=== PATIENT | female | born 1990 | race Caucasian/White ===

== ENCOUNTER 2018-06-19 17:47 | Emergency (ER) | payer OTHER ==
[2018-06-19] MEDS: ACETAMINOPHEN 325 MG TAB PO (19:07)
[2018-06-19 19:10] LABS: ADD MAN DIFF? NO
[2018-06-19 19:15] LABS: BASOPHILS % 0.1 % (0.0-2.0); EOSINOPHILS # 0.1 10^3/ul (0.0-0.5); EOSINOPHILS % 1.7 % (0.0-7.0); HEMATOCRIT 38.5 % (37.0-47.0); HEMOGLOBIN 12.5 g/dl (12.0-16.0); LYMPHOCYTES # 2.3 10^3/ul (0.8-2.9); LYMPHOCYTES % 30.1 % (15.0-51.0); MEAN CORPUSCULAR HEMOGLOBIN 28.2 pg (29.0-33.0); MEAN CORPUSCULAR HGB CONC 32.5 g/dl (32.0-37.0); MEAN CORPUSCULAR VOLUME 86.9 fl (82.0-101.0); MEAN PLATELET VOLUME 10.8 fl (7.4-10.4); MONOCYTE # 0.5 10^3/ul (0.3-0.9); MONOCYTES % 6.9 % (0.0-11.0); NEUTROPHIL # 4.6 10^3/ul (1.6-7.5); NEUTROPHILS % 60.9 % (39.0-77.0); PLATELET COUNT 272 10^3/UL (140-415); RED BLOOD COUNT 4.43 10^6/ul (4.20-5.40)
[2018-06-19 19:15] LABS: WHITE BLOOD COUNT 7.6 10^3/ul (4.8-10.8)
[2018-06-19 19:22] LABS: ADD UMIC YES; UR ASCORBIC ACID NEGATIVE (NEGATIVE); UR BILIRUBIN (Dip) NEGATIVE (NEGATIVE); UR BLOOD (Dip) 1+ mg/dL (NEGATIVE); UR CLARITY CLEAR (CLEAR); UR COLOR YELLOW (YELLOW); UR GLUCOSE (Dip) NEGATIVE (NEGATIVE); UR KETONES (Dip) NEGATIVE (NEGATIVE); UR LEUKOCYTE ESTERASE (Dip) TRACE Leu/ul (NEGATIVE); UR MUCUS FEW /HPF (NONE SEEN); UR NITRITE (Dip) NEGATIVE (NEGATIVE); UR RBC 1 /HPF (0-5); UR SPECIFIC GRAVITY (Dip) 1.019 (1.003-1.030); UR SQUAMOUS EPITHELIAL CELL FEW /HPF (FEW); UR TOTAL PROTEIN (Dip) NEGATIVE (NEGATIVE); UR UROBILINOGEN (Dip) NEGATIVE (NEGATIVE); UR WBC 0 /HPF (0-5)
[2018-06-19 19:33] LABS: ALANINE AMINOTRANSFERASE 24 IU/L (13-69); ALBUMIN 4.9 g/dl (3.3-4.9); ALBUMIN/GLOBULIN RATIO 1.48; ALKALINE PHOSPHATASE 48 IU/L (42-121); ANION GAP 13 (5-13); ASPARTATE AMINO TRANSFERASE 29 IU/L (15-46); BLOOD UREA NITROGEN 13 mg/dl (7-20); CALCIUM 10.3 mg/dl (8.4-10.2); CARBON DIOXIDE 27 mmol/L (21-31); CHLORIDE 100 mmol/L (97-110); Estimated GFR > 60 mL/min (>60); LIPASE 149 U/L (23-300); POTASSIUM 3.6 mmol/L (3.5-5.1); SODIUM 140 mmol/L (135-144); TOTAL PROTEIN 8.2 g/dl (6.1-8.1)
[2018-06-19 19:34] LABS: GLUCOSE 128 mg/dl (70-220)
== END 2018-06-19 19:50 | disposition home or self-care (01) ==
LOC: FTE 17:47
DX: R10.30 Lower abdominal pain, unspecified (principal)
CPT/HCPCS: 36415; 80053; 81001; 81025; 83690; 85025; 99283

== ENCOUNTER 2018-12-02 11:54 | Emergency (ER) | payer OTHER | END 2018-12-02 14:13 | disposition home or self-care (01) | LOC: E/R 14:13 | DX: J32.9 Chronic sinusitis, unspecified (principal) | CPT/HCPCS: 99283; Z7502 ==

== ENCOUNTER 2019-01-12 18:16 | Emergency (ER) | payer OTHER ==
[2019-01-12] MEDS: DEXAMETHASONE 10 MG/ML 1 ML INJ IM (19:35)
== END 2019-01-12 20:06 | disposition home or self-care (01) ==
LOC: E/R 18:16
DX: J02.9 Acute pharyngitis, unspecified (principal); I10 Essential (primary) hypertension; I16.0 Hypertensive urgency
CPT/HCPCS: 96372; 99284-25

== ENCOUNTER 2019-02-14 23:17 | Emergency (ER) | payer OTHER | END 2019-02-15 01:13 | disposition home or self-care (01) | LOC: FTE 23:17 | DX: J02.9 Acute pharyngitis, unspecified (principal); I10 Essential (primary) hypertension | CPT/HCPCS: 87880; 99283 ==